=== PATIENT | male | born 1985 | race Caucasian/White ===

== ENCOUNTER 2016-12-13 03:08 | Emergency (ER) | payer OTHER | END 2016-12-13 03:48 | disposition left against medical advice (07) | LOC: ER 03:08 | DX: Z53.9 Procedure and treatment not carried out, unspecified reason (principal); R10.9 Unspecified abdominal pain ==

== ENCOUNTER 2016-12-28 17:30 | Emergency (ER) | payer OTHER ==
[2016-12-28] MEDS ORDERED: ACETAMINOPHEN 325 MG TABLET PO ONE (17:58)
--- NOTE | 2016-12-28 17:58 | ER Document Report ---
ED Medical Screen (RME) - General Chief Complaint: Laceration Stated Complaint: LACERATION TO LEFT THUMB Mode of Arrival: Ambulatory Information source: Patient Notes: Patient cut his left thumb 3 days ago while at work with a knife. Patient was seen at [facility] and had it closed with skin glue adhesive. Patient complains of continued pain and some bleeding from the injury. Patient states he was told recheck for any continued problems. Tetanus immunization was up-to- date hx: None I have greeted and performed a rapid initial assessment of this patient. A comprehensive ED assessment and evaluation of the patient, analysis of test results and completion of the medical decision making process will be conducted by additional ED providers. TRAVEL OUTSIDE OF THE [place] IN LAST 30 DAYS: No - Related Data Allergies/Adverse Reactions: No Known Allergies Allergy (Verified 10/06/13 09:34) Past Medical History - Past Medical History Cardiac Medical History: Reports: Hx Hypertension Neurological Medical History: Reports: Hx Migraine GI Medical History: Reports: Hx Gastroesophageal Reflux Disease Past Surgical History: Reports: Hx Oral Surgery, Hx Orthopedic Surgery - right eblow, top jaw reset w metal - Immunizations Hx Diphtheria, Pertussis, Tetanus Vaccination: Yes - 04/21/2010 Physical Exam - Vital signs Vitals: Temp Pulse Resp BP Pulse Ox 98.1 F 80 18 163/115 H 97 12/28/16 17:44 12/28/16 17:44 12/28/16 17:44 12/28/16 17:44 12/28/16 17:44 - Skin Skin irregularity: Laceration - Laceration to lateral aspect of left thumb Course - Vital Signs Vital signs: Temp Pulse Resp BP Pulse Ox 98.1 F 80 18 163/115 H 97 12/28/16 17:44 12/28/16 17:44 12/28/16 17:44 12/28/16 17:44 12/28/16 17:44
--- NOTE | 2016-12-28 21:05 | ER Document Report ---
HPI - HPI Patient complains to provider of: wound eval Pain Level: 4 Context: Patient is a 31-year-old male presents emergency Department complaining of left thumb bleeding. Patient states that on this past Tuesday he had cut his finger with a knife and went to [facility] with a closed it with Dermabond and gave him a tetanus shot. Patient and come to the emergency department because she his feels that was not closed properly. Patient does complain of pain with hyperextension of the digit. Otherwise he has mild sensation loss on the finger pad but otherwise has full range of motion of the digit. Otherwise he denies any past medical history - CARDIOVASCULAR Cardiovascular: DENIES: Chest pain - REPRODUCTIVE Reproductive: DENIES: : - DERM Skin Color: Normal, [place] Past Medical History - General Information source: Patient - Social History Smoking Status: Unknown if Ever Smoked Family History: Reviewed & Not Pertinent Patient has suicidal ideation: No Patient has homicidal ideation: No - Past Medical History Cardiac Medical History: Reports: Hx Hypertension Neurological Medical History: Reports: Hx Migraine Renal/ Medical History: Denies: Hx Peritoneal Dialysis GI Medical History: Reports: Hx Gastroesophageal Reflux Disease Past Surgical History: Reports: Hx Oral Surgery, Hx Orthopedic Surgery - right eblow, top jaw reset w metal - Immunizations Hx Diphtheria, Pertussis, Tetanus Vaccination: Yes - 04/21/2010 Vertical Provider Document - CONSTITUTIONAL Agree With Documented VS: Yes Exam Limitations: No Limitations General Appearance: WD/WN, No Apparent Distress - INFECTION CONTROL TRAVEL OUTSIDE OF THE [place] IN LAST 30 DAYS: No - RESPIRATORY O2 Sat by Pulse Oximetry: 97 - CARDIOVASCULAR Pulses: Normal: Radial Notes: Capillary refill in all upper extremity digits less than 2 seconds bilaterally - MUSCULOSKELETAL/EXTREMETIES Musculoskeletal/Extremeties: MAEW, FROM, Tender - Tenderness to palpation over the fat pad of the left thumb as well as the nailbed. Notes: Mild swelling - DERM Integumentary: Laceration - Patient has evidence of a 4 cm lack along the lateral aspect of the right thumb extending from the lateral aspect of the fat pad along the aspect of the joint covered in Dermabond no evidence of erythema, edema, bleeding. There is evidence of blood on a dressing that he had wrapped around his finger which he states he put on approximately 12 hours ago with mild drainage Course - Re-evaluation Re-evalutation: 12/28/16 22:48 Patient is a 31-year-old male who comes in for wound evaluation of his left thumb lack. The wound is closed with Dermabond no evidence of wound dehiscence , infection or blood loss. Sensation is likely decreased to the amount of swelling around the joint. Instructed on use of ice to decrease swelling and can follow-up with his primary care provider in the next 5-10 days. - Vital Signs Vital signs: Temp Pulse Resp BP Pulse Ox 98.1 F 80 18 163/115 H 97 12/28/16 17:44 12/28/16 17:44 12/28/16 17:44 12/28/16 17:44 12/28/16 17:44 Discharge - Discharge Clinical Impression: Visit for wound check Condition: Good Disposition: HOME, SELF-CARE Instructions: Laceration Care ([facility]), Soap Cleansing ([facility]) Prescriptions: Tramadol HCl 50 mg PO Q4HP PRN #10 tablet PRN Reason: Forms: Return to Work Referrals: NHI ALAS MD [ACTIVE STAFF] - Follow up as needed
[2016-12-28] MEDS ORDERED: TRAMADOL HCL 50 MG TABLET PO ONE (21:15)
[2016-12-28 21:21] VITALS: BP 151/118
== END 2016-12-28 21:21 | disposition home or self-care (01) ==
LOC: ER 17:30
DX: S61.012D Laceration without foreign body of left thumb without damage to nail, subsequent encounter (principal); W26.0XXD Contact with knife, subsequent encounter
CPT/HCPCS: 99281

== ENCOUNTER 2017-02-02 23:21 | Emergency (ER) | payer OTHER | END 2017-02-03 01:55 | disposition left against medical advice (07) | LOC: ER 23:21 | DX: Z53.9 Procedure and treatment not carried out, unspecified reason (principal) ==

== ENCOUNTER 2017-12-30 09:00 | Emergency (ER) | payer OTHER ==
[2017-12-30] MEDS ORDERED: BUPIVACAINE HCL 0.5 % INJ/PF 30 ML SDV INJ ONE (09:35)
--- NOTE | 2017-12-30 09:51 | ER Document Report ---
ED General - General Chief Complaint: Jaw Pain Stated Complaint: SWOLLEN JAW, FEVER, HEADACHE Time Seen by Provider: 12/30/17 09:30 Mode of Arrival: Ambulatory Information source: Patient Notes: 32 yr old male presents with complaints of dental pain fever chills body aches since today. pt had tooth #5 pulled yesterday. notes it was fractured last week TRAVEL OUTSIDE OF THE [place] IN LAST 30 DAYS: No - HPI Onset: This morning Onset/Duration: Sudden Quality of pain: Achy Severity: Mild Pain Level: 1 Associated symptoms: Body/muscle aches, Chills, Fever Exacerbated by: Denies Relieved by: Denies Similar symptoms previously: Yes Recently seen / treated by doctor: Yes - Related Data Allergies/Adverse Reactions: No Known Allergies Allergy (Verified 12/30/17 09:01) Past Medical History - Social History Smoking Status: Never Smoker Cigarette use (# per day): No Chew tobacco use (# tins/day): No Smoking Education Provided: No Frequency of alcohol use: Rare Drug Abuse: None Family History: Reviewed & Not Pertinent Patient has suicidal ideation: No Patient has homicidal ideation: No - Past Medical History Cardiac Medical History: Reports: Hx Hypertension Neurological Medical History: Reports: Hx Migraine Renal/ Medical History: Denies: Hx Peritoneal Dialysis GI Medical History: Reports: Hx Gastroesophageal Reflux Disease Past Surgical History: Reports: Hx Oral Surgery, Hx Orthopedic Surgery - right eblow, top jaw reset w metal - Immunizations Hx Diphtheria, Pertussis, Tetanus Vaccination: Yes - 04/21/2010 Review of Systems - Review of Systems Notes: REVIEW OF SYSTEMS: CONSTITUTIONAL : admits to fevers chills EENT: admits to dental pain CARDIOVASCULAR: Denies chest pain. Denies palpitations or racing or irregular heart beat. Denies ankle edema. RESPIRATORY: Denies cough, cold, or chest congestion. Denies shortness of breath, difficulty breathing, or wheezing. GASTROINTESTINAL: Denies abdominal pain or distention. Denies nausea, vomiting , or diarrhea. Denies blood in vomitus, stools, or per rectum. Denies black, tarry stools. Denies constipation. GENITOURINARY: Denies difficulty urinating, painful urination, burning, frequency, blood in urine, or discharge. MUSCULOSKELETAL: Denies back or neck pain or stiffness. Denies joint pain or swelling. SKIN: Denies rash, lesions or sores. HEMATOLOGIC : Denies easy bruising or bleeding. LYMPHATIC: Denies swollen, enlarged glands. NEUROLOGICAL: Denies confusion or altered mental status. Denies passing out or loss of consciousness. Denies dizziness or lightheadedness. Denies headache. Denies weakness or paralysis or loss of use of either side. Denies problems with gait or speech. Denies sensory loss, numbness, or tingling. Denies seizures. PSYCHIATRIC: Denies anxiety or stress. Denies depression, suicidal ideation, or homicidal ideation. ALL OTHER SYSTEMS REVIEWED AND NEGATIVE. Dictation was performed using [employer] recognition software PHYSICAL EXAMINATION: GENERAL: Well-appearing, well-nourished and in no acute distress. HEAD: Atraumatic, normocephalic. EYES: Pupils equal round and reactive to light, extraocular movements intact, sclera anicteric, conjunctiva are normal. ENT: tooth 5 extracted, no abscess noted, mild eryhtema no drainage NECK: Normal range of motion, supple without lymphadenopathy LUNGS: Breath sounds clear to auscultation bilaterally and equal. No wheezes rales or rhonchi. HEART: Regular rate and rhythm without murmurs ABDOMEN: Soft, nontender, nondistended abdomen. No guarding, no rebound. No masses appreciated. Musculoskeletal: Normal range of motion, no pitting or edema. No cyanosis. NEUROLOGICAL: Cranial nerves grossly intact. Normal speech, normal gait. Normal sensory, motor exams PSYCH: Normal mood, normal affect. SKIN: Warm, Dry, normal turgor, no rashes or lesions noted. Physical Exam - Vital signs Vitals: Temp Pulse Resp BP Pulse Ox 99.8 F 80 18 164/146 H 98 12/30/17 09:11 12/30/17 09:11 12/30/17 09:11 12/30/17 09:11 12/30/17 09:11 Course - Re-evaluation Re-evalutation: 12/30/17 09:48 Patient overall looks well is in no significant distress, his blood pressure is noted to be elevated which I believe is secondary to pain, patient was given a dental block and has complete resolution of his pain. He will be discharged home with antibiotics and pain control and follow-up with primary care physician as well as dentistry After performing a Medical Screening Examination, I estimate there is LOW risk for a DEEP SPACE INFECTION (e.g., DENISE'S ANGINA OR RETROPHARYNGEAL ABSCESS), MENINGITIS, INTRACRANIAL HEMORRHAGE, or AIRWAY COMPROMISE, thus I consider the discharge disposition reasonable. Also, there is no evidence or peritonitis, sepsis, or toxicity. I have reevaluated this patient multiple times and no significant life threatening changes are noted. The patient and I have discussed the diagnosis and risks, and we agree with discharging home with close follow-up with the understanding that symptoms and presentations can change. We also discussed returning to the Emergency Department immediately if new or worsening symptoms occur. We have discussed the symptoms which are most concerning (e.g., changing or worsening pain, trouble swallowing or breathing, neck stiffness or fever) that necessitate immediate return. - Vital Signs Vital signs: Temp Pulse Resp BP Pulse Ox 99.8 F 80 18 174/130 H 98 12/30/17 09:11 12/30/17 09:11 12/30/17 09:11 12/30/17 09:18 12/30/17 09:11 Procedures - Additional Procedures inferior orbital nerve block Time performed: 09:40 - using 10cc of sensorcaine with compelte releif no complciation Discharge - Discharge Clinical Impression: Pain, dental Fever Qualifiers: Fever type: unspecified Qualified Code(s): R50.9 - Fever, unspecified Hypertension Qualifiers: Hypertension type: essential hypertension Qualified Code(s): I10 - Essential ( primary) hypertension Condition: Stable Disposition: HOME, SELF-CARE Instructions: Toothache ([facility]), High Blood Pressure ([facility]) Additional Instructions: Follow up with your physician tomorrow for further care or return to the ED IMMEDIATELY if symptoms worsen or new concerns occur. If you cannot afford to follow up with your primary care physician a list of low cost clinics have been provided at the end of your discharge papers as well. Prescriptions: Amox Tr/Potassium Clavulanate [Augmentin 875-125 Tablet] 1 tab PO BID 10 Days tablet Hydrocodone/Acetaminophen [[place] 5-325 mg Tablet] 1 tab PO Q6 #10 tablet
[2017-12-30 09:57] VITALS: BP 178/124
== END 2017-12-30 10:01 | disposition home or self-care (01) ==
LOC: ER 09:00
DX: K08.89 Other specified disorders of teeth and supporting structures (principal); R50.9 Fever, unspecified; M79.1 Myalgia; I10 Essential (primary) hypertension; Z98.890 Other specified postprocedural states
CPT/HCPCS: 99283; 64400; J3490

== ENCOUNTER 2019-07-15 23:19 | Observation (INO) | payer OTHER ==
[2019-07-16] MEDS ORDERED: NORMAL SALINE 1000 ML 1,000 ML IV ONE ×3 (01:14→03:47)
[2019-07-16] MEDS ORDERED: ONDANSETRON HCL INJ/PF 4 MG/2 ML SDV IV ONE (01:14)
[2019-07-16] MEDS ORDERED: MORPHINE SULFATE 10 MG/ML INJ IV ONE (01:14)
--- NOTE | 2019-07-16 01:18 | ER Document Report ---
ED General - General Chief Complaint: Abdominal Pain Stated Complaint: STOMACH PAIN Time Seen by Provider: 07/16/19 01:05 Primary Care Provider: HILARY SKY MD [Primary Care Provider] - Follow up as needed TRAVEL OUTSIDE OF THE [place] IN LAST 30 DAYS: No - HPI Notes: Patient is a 33-year-old male that presents to the emergency department for chief complaint of lower quadrant abdominal pain. Patient states he woke up at 8 AM this morning with a severe pain in his right lower quadrant. The pain radiates down into his right groin and up into his right upper quadrant. It is worse with any moving or deep inspiration. Patient states that he has felt nauseated but has not vomited. He denies associated fevers. He denies any diarrhea or constipation. He did try [id number] Aleve and Tylenol without relief. He does still have his gallbladder and appendix. Patient states the pain is sharp and constant without relieving factors. Past Medical History: Negative Past Surgical History: Right elbow fracture repair Social History: Denies drugs alcohol and tobacco Family History: Reviewed and noncontributory for presenting illness Allergies: Reviewed, see documented allergy list. REVIEW OF SYSTEMS: CONSTITUTIONAL : No fever No chills No diaphoresis No recent illness EENT: No vision changes No congestion No sore throat CARDIOVASCULAR: No chest pain No palpitations RESPIRATORY: No shortness of breath No cough No difficulty breathing GASTROINTESTINAL: abdominal pain nausea No vomiting No diarrhea GENITOURINARY: No dysuria No hematuria No difficulty urinating MUSCULOSKELETAL: No back pain No leg pain No arm pain SKIN: No rashes No lesions LYMPHATIC: No swollen, enlarged glands. NEUROLOGICAL: No lightheadedness No headache No weakness No paresthesias PSYCHIATRIC: No anxiety No depression PHYSICAL EXAMINATION: Vital signs reviewed, nursing noted reviewed. GENERAL: Appears uncomfortable, well-nourished and in no acute distress. HEAD: Atraumatic, normocephalic. EYES: Eyes appear normal, extraocular movements intact, sclera anicteric, conjunctiva are normal. ENT: nares patent, oropharynx clear without exudates. Moist mucous membranes. NECK: Normal range of motion, supple without lymphadenopathy LUNGS: Breath sounds clear to auscultation bilaterally and equal. No wheezes rales or rhonchi. HEART: Regular rate and rhythm without murmurs ABDOMEN: Soft, guarding and tenderness in the right upper and lower quadrant with most tenderness in the right lower quadrant. Positive rebound tenderness. No rigidity. Positive psoas sign EXTREMITIES: Nontender, good range of motion, no pitting or edema. NEUROLOGICAL: No focal neurological deficits. Moves all extremities spontaneously Motor and sensory grossly intact on exam. PSYCH: Normal mood, normal affect. SKIN: Warm, Dry, normal turgor, no rashes or lesions noted on exposed skin - Related Data Allergies/Adverse Reactions: No Known Allergies Allergy (Verified 12/30/17 09:01) Past Medical History - Social History Smoking Status: Never Smoker Family History: Reviewed & Not Pertinent - Past Medical History Cardiac Medical History: Reports: Hx Hypertension Neurological Medical History: Reports: Hx Migraine Renal/ Medical History: Denies: Hx Peritoneal Dialysis GI Medical History: Reports: Hx Gastroesophageal Reflux Disease Past Surgical History: Reports: Hx Oral Surgery, Hx Orthopedic Surgery - right eblow, top jaw reset w metal - Immunizations Hx Diphtheria, Pertussis, Tetanus Vaccination: Yes - 04/21/2010 Physical Exam - Vital signs Vitals: Temp Pulse Resp BP Pulse Ox 98.1 F 80 18 162/115 H 97 07/15/19 23:36 07/15/19 23:36 07/15/19 23:36 07/15/19 23:36 07/15/19 23:36 Course - Re-evaluation Re-evalutation: 07/16/19 01:17 Vitals reviewed. Nursing notes reviewed. Patient appears uncomfortable and will be started on IV fluids antiemetics and pain medication. He is exquisitely tender in his right lower quadrant and to a lesser extent the right upper quadrant. Patient also has some guarding and rebound tenderness. Clinically p atient presents like acute appendicitis. Blood work and imaging has been ordered. 07/16/19 03:[address] scan confirms acute appendicitis. His case was discussed with Dr. Roa who will admit for further care. Laboratory 07/16/19 07/16/19 07/16/19 01:35 01:35 01:35 WBC 9.8 RBC 5.01 Hgb 15.0 Hct 41.8 MCV 84 MCH 30.0 MCHC 35.9 RDW 13.1 Plt Count 114 L Lymph % (Auto) 29.6 [place] % (Auto) 6.3 Eos % (Auto) 1.4 Baso % (Auto) 0.9 Absolute Neuts (auto) 6.1 Absolute Lymphs (auto) 2.9 Absolute Monos (auto) 0.6 Absolute Eos (auto) 0.1 Absolute Basos (auto) 0.1 Seg Neutrophils % 61.8 Sodium 141.0 Potassium 3.6 Chloride 100 Carbon Dioxide 29 Anion Gap 12 BUN 19 Creatinine 1.19 Est GFR ( Amer) > 60 Est GFR (MDRD) Non-Af > 60 Glucose 96 Calcium 9.7 Total Bilirubin 0.8 Direct Bilirubin 0.1 Neonat Total Bilirubin Not Reportable Neonat Direct Bilirubin Not Reportable Neonat Indirect Bili Not Reportable AST 28 ALT 15 Alkaline Phosphatase 76 Total Protein 7.6 Albumin 4.6 Lipase 89.4 Urine Color DARK YELLOW Urine Appearance CLEAR Urine pH 5.0 Ur Specific [place] 1.035 Urine Protein 100 H Urine Glucose (UA) NEGATIVE Urine Ketones NEGATIVE Urine Blood NEGATIVE Urine Nitrite POSITIVE H Urine Bilirubin NEGATIVE Urine Urobilinogen 4.0 H Ur Leukocyte Esterase NEGATIVE Urine WBC (Auto) 1 Urine RBC (Auto) 0 Squamous Epi Cells Auto <1 Calcium Oxalate Cr Auto FEW Urine Mucus (Auto) MANY Urine Ascorbic Acid NEGATIVE Abdomen/Pelvis CT 07/16/19 01:14 IMPRESSION: Acute appendicitis as above TECHNICAL DOCUMENTATION: Quality ID # 436: Final reports with documentation of one or more dose reduction techniques (e.g., Automated exposure control, adjustment of the mA and/or kV according to patient size, use of iterative reconstruction technique) copyright 2011 [employer]- All Rights Reserved - Vital Signs Vital signs: Temp Pulse Resp BP Pulse Ox 98.1 F 80 18 162/115 H 97 07/15/19 23:36 07/15/19 23:36 07/15/19 23:36 07/15/19 23:36 07/15/19 23:36 - Laboratory Result Diagrams: 07/16/19 01:35 07/16/19 01:35 Laboratory results interpreted by me: 07/16/19 07/16/19 01:35 01:35 Plt Count 114 L Urine Protein 100 H Urine Nitrite POSITIVE H Urine Urobilinogen 4.0 H Discharge - Discharge Clinical Impression: Appendicitis Qualifiers: Appendicitis type: acute appendicitis Acute appendicitis type: with localized peritonitis Appendicitis gangrene presence: without gangrene Appendicitis perf oration presence: without perforation Appendicitis abscess presence: without abscess Qualified Code(s): K35.30 - Acute appendicitis with localized peritonitis, without perforation or gangrene Condition: Stable Disposition: ADMITTED INPATIENT Admitting Provider: Surgicalist Unit Admitted: Surgical Floor Referrals: HILARY SKY MD [Primary Care Provider] - Follow up as needed
[2019-07-16 02:03] LABS: ABSOLUTE BASOPHILS # (AUTO) 0.1 10^3/uL (0.0-0.2); ABSOLUTE EOSINOPHILS # (AUTO) 0.1 10^3/uL (0.0-0.6); ABSOLUTE LYMPHOCYTES (AUTO) 2.9 10^3/uL (0.5-4.7); ABSOLUTE MONOCYTES (AUTO) 0.6 10^3/uL (0.1-1.4); ABSOLUTE NEUT (AUTO) 6.1 10^3/uL (1.7-8.2); BASOPHILS % (AUTO) 0.9 % (0-2); EOSINOPHILS % (AUTO) 1.4 % (0-6); HEMATOCRIT 41.8 % (37.9-51.0); LYMPHOCYTES % (AUTO) 29.6 % (13-45); MEAN CORPUSCULAR HGB CONC 35.9 g/dL (32.0-36.0); MEAN CORPUSCULAR VOLUME 84 fl (80-97); MONOCYTES % (AUTO) 6.3 % (3-13); PLATELET COUNT 114 10^3/uL (150-450); RED BLOOD COUNT 5.01 10^6/uL (4.35-5.55); RED CELL DISTRIBUTION WIDTH 13.1 % (11.5-14.0); SEGMENTED NEUTROPHILS % (AUTO) 61.8 % (42-78); TOTAL CELLS COUNTED % (AUTO) 100 %; WHITE BLOOD COUNT 9.8 10^3/uL (4.0-10.5)
[2019-07-16 02:10] LABS: APPEARANCE,URINE CLEAR; BILIRUBIN,URINE NEGATIVE (NEGATIVE); CALCIUM OXALATE CRYSTALS,URINE FEW /HPF; GLUCOSE, URINE NEGATIVE (NEGATIVE); KETONES,URINE NEGATIVE (NEGATIVE); LEUKOCYTE ESTERASE,URINE NEGATIVE (NEGATIVE); NITRITE,URINE POSITIVE (NEGATIVE); PROTEIN,URINE 100 mg/dL (NEGATIVE); URINE SPECIFIC GRAVITY 1.035
[2019-07-16 02:14] LABS: COLOR,URINE DARK YELLOW
[2019-07-16 02:20] LABS: ALBUMIN 4.6 g/dL (3.5-5.0); ALKALINE PHOSPHATASE 76 U/L (38-126); ANION GAP 12 (5-19); ASPARTATE AMINO TRANSFERASE 28 U/L (17-59); BILIRUBIN,DIRECT 0.1 mg/dL (0.0-0.4); BILIRUBIN,TOTAL 0.8 mg/dL (0.2-1.3); BLOOD UREA NITROGEN 19 mg/dL (7-20); CALCIUM 9.7 mg/dL (8.4-10.2); CARBON DIOXIDE 29 mmol/L (22-30); CHLORIDE 100 mmol/L (98-107); GLUCOSE 96 mg/dL (75-110); POTASSIUM 3.6 mmol/L (3.6-5.0); TOTAL PROTEIN 7.6 g/dL (6.3-8.2)
[2019-07-16] MEDS ORDERED: KETOROLAC TROMETHAMINE INJ/PF 30 MG/1 ML SDV IV ONE (02:52)
--- NOTE | 2019-07-16 03:12 | RADIOLOGY REPORT (SQ) ---
EXAM DESCRIPTION: CT ABDOMEN PELVIS WITH IV CONTRAST COMPLETED DATE/TME: 07/16/2019 01:14 CLINICAL HISTORY: 33 years, Male, RLQ pain COMPARISON: None. TECHNIQUE: [id number] Images stored on PACS. All CT scanners at this facility use dose modulation, iterative reconstruction, and/or weight based dosing when appropriate to reduce radiation dose to as low as reasonably achievable (ALARA). [facility]: Dose Right [facility]: CareDose [facility]: Dose Right [facility]: Teradose 4D [facility]: [place] LIMITATIONS: None. FINDINGS: The lung bases are unremarkable. Osseous structures are grossly intact. Fatty infiltrative change to the liver. Spleen, adrenal glands, pancreas, kidneys are unremarkable. Gallbladder is present, contracted. No gross evidence for bowel obstruction. Abundant stool in the colon. The appendix is mildly dilated and there is mild surrounding inflammatory changes. Findings are consistent with acute appendicitis. Maximal diameter of the appendix is 1.1 cm. No abscess, free air, or free fluid. IMPRESSION: Acute appendicitis as above TECHNICAL DOCUMENTATION: Quality ID # [id number]: Final reports with documentation of one or more dose reduction techniques (e.g., Automated exposure control, adjustment of the mA and/or kV according to patient size, use of iterative reconstruction technique) copyright 2010 [employer] All Rights Reserved
[2019-07-16] MEDS ORDERED: CEFTRIAXONE 2 GM/D5W RTU 2 GM/50 ML RTUPB IV ONE (03:37)
[2019-07-16] MEDS ORDERED: METRONIDAZOLE RTU 500 MG/NS 100 ML IV ONE (03:38)
--- NOTE | 2019-07-16 03:40 | PDOC H&P ---
History of Present Illness Admission Date/PCP: HILARY SKY MD Patient complains of: Abdominal pain History of Present Illness: MAGALI WELLS JR is a 33 year old male who presents to the emergency room with a complaint of abdominal pain for 1 day, a CT scan abdomen pelvis has been done revealing an acute nonperforated appendicitis. The patient is a history of benign brain tumor which currently is on oral chemotherapy and is progressively shrinking in size, hypertension, GERD, and moderate obesity. 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 GI Medical History: Reports: Gastroesophageal Reflux Disease Past Surgical History Past Surgical History: Reports: Orthopedic Surgery - right eblow, top jaw reset w metal Social History Smoking Status: Never Smoker Family History Family History: Malignancy Parental Family History Reviewed: No Children Family History Reviewed: No Sibling(s) Family History Reviewed.: No Medication/Allergy Home Medications: Oxycodone HCl/Acetaminophen [Percocet 5-325 mg Tablet] 1 - 2 tab PO ASDIR PRN #25 tablet 07/27/12 Cabergoline [Cabergoline 0.5 mg Tablet] 1 tab PO Q3DAYS 10/06/13 Methocarbamol 750 mg PO TID 10/06/13 Pantoprazole Sodium [Protonix] 40 mg PO DAILY 10/06/13 Testosterone [Androgel] 1.62 gm TD DAILY 10/06/13 Tramadol HCl 50 mg PO TID 10/06/13 Cephalexin Monohydrate [Keflex 500 mg Capsule] 500 mg PO BID #20 capsule 07/30/16 Oxycodone HCl/Acetaminophen [Percocet 5-325 mg Tablet] 1 - 2 tab PO ASDIR PRN #20 tablet 07/30/16 Tramadol HCl 50 mg PO Q4HP PRN #10 tablet 12/28/16 Amox Tr/Potassium Clavulanate [Augmentin 875-125 Tablet] 1 tab PO BID 10 Days tablet 12/30/17 Hydrocodone/Acetaminophen [[place] 5-325 mg Tablet] 1 tab PO Q6 #10 tablet 12/30/17 Allergies/Adverse Reactions: No Known Allergies Allergy (Verified 12/30/17 09:01) Physical Exam Vital Signs: Temp Pulse Resp BP Pulse Ox 97.8 F 60 16 161/107 H 97 08/26/19 03:25 07/16/19 03:25 07/16/19 03:25 07/16/19 03:25 07/16/19 03:25 Intake & Output 07/14/19 07/15/19 07/16/19 06:59 06:59 06:59 Weight 98.1 kg General appearance: PRESENT: mild distress, obese Head exam: PRESENT: atraumatic, normocephalic Eye exam: PRESENT: EOMI, PERRLA Mouth exam: PRESENT: moist, neck supple Neck exam: PRESENT: full ROM Respiratory exam: PRESENT: clear to auscultation cande Cardiovascular exam: PRESENT: RRR GI/Abdominal exam: PRESENT: guarding - In the right lower quadrant, rebound - The right lower quadrant, soft, tenderness - Diffusely particularly in the right lower quadrant Rectal exam: PRESENT: deferred Extremities exam: PRESENT: full ROM Musculoskeletal exam: PRESENT: full ROM Neurological exam: PRESENT: alert, altered Psychiatric exam: PRESENT: appropriate affect Skin exam: PRESENT: warm Results Laboratory Results: 07/16/19 01:35 07/16/19 01:35 07/16/19 07/16/19 07/16/19 01:35 01:35 01:35 WBC 9.8 RBC 5.01 Hgb 15.0 Hct 41.8 MCV 84 MCH 30.0 MCHC 35.9 RDW 13.1 Plt Count 114 L Seg Neutrophils % 61.8 Sodium 141.0 Potassium 3.6 Chloride 100 Carbon Dioxide 29 Anion Gap 12 BUN 19 Creatinine 1.19 Est GFR ( Amer) > 60 Glucose 96 Calcium 9.7 Total Bilirubin 0.8 AST 28 Alkaline Phosphatase 76 Total Protein 7.6 Albumin 4.6 Lipase 89.4 Urine Color DARK YELLOW Urine Appearance CLEAR Urine pH 5.0 Ur Specific [place] 1.035 Urine Protein 100 H Urine Glucose (UA) NEGATIVE Urine Ketones NEGATIVE Urine Blood NEGATIVE Urine Nitrite POSITIVE H Ur Leukocyte Esterase NEGATIVE Urine WBC (Auto) 1 Urine RBC (Auto) 0 Impressions: Abdomen/Pelvis CT 07/16/19 01:14 IMPRESSION: Acute appendicitis as above TECHNICAL DOCUMENTATION: Quality ID # 436: Final reports with documentation of one or more dose reduction techniques (e.g., Automated exposure control, adjustment of the mA and/or kV according to patient size, use of iterative reconstruction technique) copyright 2011 [employer]- All Rights Reserved Assessment & Plan - Diagnosis (1) Acute appendicitis with generalized peritonitis Qualifiers: Appendicitis gangrene presence: without gangrene Appendicitis perforation presence: unspecified whether perforation present Appendicitis abscess presence: unspecified whether abscess present Qualified Code(s): K35.20 - Acute appendicitis with generalized peritonitis, without abscess Is this a current diagnosis for this admission?: Yes - Plan Summary Plan Summary: Assessment: 33-year-old male with right upper quadrant pain intense nausea Physical exam significant for guarding in the right lower quadrant CT scan abdomen pelvis demonstrates an acute nonperforated appendicitis Blood work within normal limits Plan: Admit Aggressive IV hydration IV antibiotics (ceftriaxone and Flagyl) N.p.o. Plan laparoscopic appendectomy possible open in the morning.
[2019-07-16] MEDS ORDERED: ONDANSETRON HCL INJ/PF 4 MG/2 ML SDV IV PRN ×3 (03:41→12:00)
[2019-07-16] MEDS ORDERED: NORMAL SALINE 1000 ML 1,000 ML IV PRN (03:41)
[2019-07-16] MEDS ORDERED: MORPHINE SULFATE 10 MG/ML INJ IV PRN ×2 (03:49→11:23)
[2019-07-16] MEDS: MORPHINE SULFATE 10 MG/ML INJ IV PRN ×3 (05:06→16:12)
[2019-07-16 05:41] LABS: CHLAM PCR NOT DETECTED (NOT DETECT)
[2019-07-16] MEDS: METRONIDAZOLE 500 MG/NS RTU 500 MG/100 ML RTUPB IV SCH ×3 (05:57→21:34)
[2019-07-16] MEDS ORDERED: CEFTRIAXONE 2 GM/D5W RTU 2 GM/50 ML RTUPB IV SCH (06:00)
[2019-07-16] MEDS ORDERED: DEXAMETHASONE SOD PHOSPHATE INJ 4 MG/1 ML VIAL ONE (10:37)
[2019-07-16] MEDS ORDERED: ONDANSETRON HCL INJ/PF 4 MG/2 ML SDV ONE (10:37)
[2019-07-16] MEDS ORDERED: FENTANYL CITRATE INJ/PF 100 MCG/2 ML AMPUL ONE (10:37)
[2019-07-16] MEDS ORDERED: MIDAZOLAM 2 MG/2 ML INJ ONE (10:37)
[2019-07-16] MEDS ORDERED: PROPOFOL INJ 200 MG/20 ML VIAL IV ONE (10:38)
[2019-07-16] MEDS ORDERED: SUGAMMADEX SODIUM 200 MG/2 ML SDV IV ONE (10:38)
[2019-07-16] MEDS: BUPIVACAINE HCL 0.25 % INJ/PF (2.5 MG/1 ML) 30 ML VIAL ONE ×2 (10:53→10:58)
[2019-07-16] MEDS ORDERED: PROMETHAZINE HCL INJ 25 MG/1 ML VIAL IV PRN ×2 (11:23)
[2019-07-16] MEDS ORDERED: DIPHENHYDRAMINE HCL 50 MG/ML VIAL IV PRN (11:23)
[2019-07-16] MEDS ORDERED: FENTANYL CITRATE INJ/PF 100 MCG/2 ML AMPUL IV PRN ×3 (11:23)
[2019-07-16] MEDS ORDERED: MEPERIDINE HCL/PF INJ 25 MG/1 ML DISP.SYRIN IV PRN (11:23)
--- NOTE | 2019-07-16 11:59 | Operative Report ---
Operative Report DATE OF SURGERY: 07/16/19 PREOPERATIVE DIAGNOSIS: Acute appendicitis POSTOPERATIVE DIAGNOSIS: Same OPERATION: Laparoscopic appendectomy SURGEON: MARIO ALBERTO ASH ANESTHESIA: GA TISSUE REMOVED OR ALTERED: 1 appendix COMPLICATIONS: None ESTIMATED BLOOD LOSS: Minimal INTRAOPERATIVE FINDINGS: See below PROCEDURE: The patient was taken from the preop holding her to the main operating room and general anesthesia was induced. Right arm ended laterally, left arm tucked. Patient voided on-call to the OR. The abdomen was exposed, hair previously clipped, then abdominal wall prepped draped sterile fashion with Betadine Surgical plan surgical timeout were conducted. Markings were made on the skin for 3 port appendectomy, laparoscopic. The skin above the umbilicus was anesthetized with 1% lidocaine with epinephrine. A vertical incision was made with a #15 blade, Veress needle inserted into the peritoneal cavity, pneumoperitoneum was established. Veress needle was removed, and a 5 mm port was inserted and a 5 mm flexible scope was inserted. There is no evidence of visceral or vascular injury Under Direct visualization 2 additional ports were placed, one in the left lower quadrant 12 mm and a 5 mm in the suprapubic position. The patient was placed in the Trendelenburg position, and rated the left side. The appendix was acutely inflamed, but not perforated and not separative. The acute component was distally. We elevated the appendix into the mid free peritoneal space. An opening was made just adjacent to the base the appendix. We brought onto the field a 45 mm Ethicon stapler, blue load. We have deployed the stapler, amputating the appendix at its base. Subsequently the mesoappendix was divided with a repeat firing of the stapler, again blue load. There was some bleeding in the staple line which was controlled with point electrocautery. The appendix was placed in Endobag and brought to the patient in the left lower quadrant port site. It was sent to pathology. We checked the staple lines and they were intact. Residual blood was aspirated. Again there was no evidence of vascular or visceral injury. Now closed the left lower quadrant 12 mm port site with a single interrupted 0 Vicryl suture using the percutaneous suture passer. Pneumoperitoneum was decompressed, not secured. All ports removed uneventfully, and skin closed with 3-0 Vicryl benzoin and Steri-Strips. Patient tolerated the procedure well, extubated, taken recovery in stable condition.
[2019-07-16] MEDS ORDERED: KETOROLAC TROMETHAMINE 10 MG TABLET PO PRN (12:00)
[2019-07-16] MEDS ORDERED: MORPHINE SULFATE 10 MG/ML INJ ONE (12:04)
[2019-07-16] MEDS: HYDROMORPHONE HCL INJ/PF 2 MG/ML AMPULE ONE ×2 (12:25→12:35)
[2019-07-16] MEDS: KETOROLAC TROMETHAMINE INJ/PF 30 MG/1 ML SDV IV PRN ×2 (13:27→21:36)
[2019-07-16] MEDS ORDERED: SUCCINYLCHOLINE CHLORIDE INJ 200 MG/10 ML VIAL ONE (14:28)
[2019-07-16] MEDS ORDERED: ROCURONIUM BROMIDE INJ 50 MG/5 ML VIAL IV ONE (14:28)
[2019-07-16] MEDS: FAMOTIDINE INJ/PF 20 MG/2 ML SDV IV SCH ×2 (16:39→21:37)
[2019-07-16] MEDS ORDERED: DOCUSATE SODIUM 100 MG CAPSULE PO SCH (18:00)
[2019-07-16 23:41] VITALS: BP 125/67
--- NOTE | 2019-07-19 08:57 | PDOC DISCHARGE SUMMARY ---
General - Admit/Disc Date/PCP Admission Date/Primary Care Provider: 07/16/19 03:49 HILARY SKY MD Discharge Date: 07/16/19 - Additional Information Resuscitation Status: Full Code Discharge Diet: As Tolerated, Regular Discharge Activity: Activity As Tolerated, Balance Activity w/Rest, No Lifting Over 10 Pounds, No Lifting/Push/Pulling, Slowly Increase Activity Home Medications: Cabergoline [Cabergoline 0.5 mg Tablet] 1 tab PO MOWEFR@1000 10/06/13 Pantoprazole Sodium [Protonix] 40 mg PO DAILY 10/06/13 Amlodipine Besylate [Norvasc 10 mg Tablet] 10 mg PO DAILY 07/16/19 Metoprolol Tartrate [Lopressor 50 mg Tablet] 50 mg PO Q12H 07/16/19 History of Present Illness History of Present Illness: MAGALI WELLS JR is a 33 year old male Hospital Course Hospital Course: Patient is a 33-year-old male presents the emergency department with acute onset abdominal pain. He was evaluated by CT scan of the abdomen pelvis and found to have findings consistent with acute appendicitis. Patient was taken to the operating room by Dr. Larose on 07 06 2019. He was found to have acute appendicitis and his final pathology report confirmed acute appendicitis with serositis. The procedure was performed laparoscopically and he tolerated the procedure well, that evening he was felt to receive maximum benefit from hospitalization was discharged home. Physical Exam Vital Signs: Temp Pulse Resp BP Pulse Ox 98.9 F 51 L 18 125/67 97 07/17/19 00:05 07/17/19 00:05 07/17/19 00:05 07/17/19 00:05 07/17/19 00:05 Results Laboratory Results: 07/16/19 01:35 07/16/19 01:35 Impressions: Abdomen/Pelvis CT 07/16/19 01:14 IMPRESSION: Acute appendicitis as above TECHNICAL DOCUMENTATION: Quality ID # 436: Final reports with documentation of one or more dose reduction techniques (e.g., Automated exposure control, adjustment of the mA and/or kV according to patient size, use of iterative reconstruction technique) copyright 2011 [employer]- All Rights Reserved Qualifiers - * PATIENT BEING DISCHARGED WITH ANY OF THE FOLLOWING DIAGNOSIS: No Acute Heart Failure - Is this a Heart Failure Patient?: No Plan Discharge Plan: Patient discharged home to care of his family follow-up with [place] [facility] in 1 to 2 weeks, shower, refrain from excessive lifting pushing or pulling.
== END 2019-07-17 00:58 | disposition home or self-care (01) ==
LOC: ER 23:19 → EH 07-16 03:49 → INTOOBSV 07-16 03:49 → 2N 07-16 13:05
PROVIDERS: ATTEND Surgery
PROC: 0DTJ4ZZ Resection of Appendix, Percutaneous Endoscopic Approach (ICD-10-PCS; principal; 2019-07-16 10:15)
DX: K35.20 Acute appendicitis with generalized peritonitis, without abscess (principal); D33.2 Benign neoplasm of brain, unspecified; E66.9 Obesity, unspecified; I10 Essential (primary) hypertension; K21.9 Gastro-esophageal reflux disease without esophagitis; Z79.899 Other long term (current) drug therapy
CPT/HCPCS: 44970; 99285; 96361; 96374; 96375; 36415; 87040; 83690; 85025; 80053; 81001; 87491; 87591; 88304 ×2; 74177; 00840; G0378 ×3; J2250; J3490 ×3; J1100; J3010; J1885; J2270; J1170; J0330; J2405; J7030; J2704; S0028; 840; J0696